=== PATIENT | female | born 1955 | race Hispanic/Latino ===

== ENCOUNTER 2016-03-17 11:47 | Emergency (ER) | payer MEDICARE ==
[2016-03-17 11:54] VITALS: BP 209/95
--- NOTE | 2016-03-17 14:06 | Emergency Department Report ---
ED Rash HPI - HPI Chief Complaint: Skin Rash Stated Complaint: SKIN IRRITATION Duration: 4 Days Location: Chest Suspected Cause: Other Rash Symptoms: Yes Itching, No Facial Swelling, No Tongue/Oral Swelling, No Breathing Difficulties, No Choking Sensation, No Wheezing/Dyspnea, No Peeling, No Blistering, No Fever, No Lightheaded, No Malaise, No Myalgias Severity: mild Other History: 61 y/o female complain of rash to abdomen and chest area x 4 days .pt state she was her clothes in dish person soap and notice rash after .pt denies any prior medical treatment .pt state she has not taking blood pressure medication this am ED Review of Systems ROS: Stated complaint: SKIN IRRITATION Other details as noted in HPI Constitutional: denies: chills, fever Eyes: denies: eye pain, eye discharge, vision change ENT: denies: ear pain, throat pain Respiratory: denies: cough, shortness of breath, wheezing Cardiovascular: denies: chest pain, palpitations Endocrine: no symptoms reported Gastrointestinal: denies: abdominal pain, nausea, diarrhea Genitourinary: denies: urgency, dysuria, discharge Musculoskeletal: denies: back pain, joint swelling, arthralgia Skin: rash. denies: lesions Neurological: denies: headache, weakness, paresthesias Psychiatric: denies: anxiety, depression Hematological/Lymphatic: denies: easy bleeding, easy bruising ED Past Medical Hx - Past Medical History Previous Medical History?: Yes Hx Hypertension: Yes (since 1993, takes azur) Additional medical history: irregular heartbeat, hard of hearing, uses sign language - Surgical History Past Surgical History?: Yes Additional Surgical History: casi eye surgery - Social History Smoking Status: Never Smoker Substance Use Type: Prescribed - Medications Home Medications: Home Medications Medication Instructions Recorded Confirmed Last Taken Type Amlodipine Bes/Olmesartan Med 1 tab PO DAILY 01/04/13 01/04/13 Unknown History [Mine 10-20 mg] Hydrocodone Bit/Acetaminophen 1 each PO Q8H PRN 01/04/13 01/04/13 Unknown History [Lortab 7.5-500 mg] Hydrocodone Bit/Acetaminophen 1 each PO Q8H PRN #40 tablet 01/05/13 Unknown Rx [Lortab 7.5-500 mg] Azithromycin [Zithromax Z-LOLA] 250 mg PO DAILY #6 tablet 11/20/13 Unknown Rx diphenhydrAMINE [Benadryl CAP] 50 mg PO Q8HR PRN #15 capsule 03/17/16 Unknown Rx predniSONE [Deltasone] 60 mg PO QDAY #3 tab 03/17/16 Unknown Rx Rash Exam - Exam General: Vital signs noted. No distress. Alert and acting appropriately. ED Course Vital Signs 03/17/16 11:48 Temperature 97.7 F Pulse Rate 68 Respiratory 18 Rate Blood Pressure 209/95 O2 Sat by Pulse 99 Oximetry ED Medical Decision Making - Medical Decision Making hypertension contact dermatitis pt aware of blood pressure state she will take medication and would like to be evaluate for rash Critical care attestation.: If time is entered above; I have spent that time in minutes in the direct care of this critically ill patient, excluding procedure time. ED Disposition Clinical Impression: Contact dermatitis Qualifiers: Contact dermatitis type: irritant Contact dermatitis trigger: detergents Qualified Code(s): L24.0 - Irritant contact dermatitis due to detergents Hypertension Qualifiers: Hypertension type: essential hypertension Qualified Code(s): I10 - Essential ( primary) hypertension Disposition: DISCHARGED TO HOME OR SELFCARE Is pt being admited?: No Does the pt Need Aspirin: No Condition: Stable Instructions: Contact Dermatitis (ED), Hypertension (ED) Additional Instructions: do not use soap to wash clothes Prescriptions: diphenhydrAMINE [Benadryl CAP] 50 mg PO Q8HR PRN #15 capsule PRN Reason: Itching predniSONE [Deltasone] 60 mg PO QDAY #3 tab Referrals: PRIMARY CARE, [Primary Care Provider] - 3-5 Days [facility] [Outside] - 3-5 Days Time of Disposition: 14:06
== END 2016-03-17 14:16 | disposition home or self-care (01) ==
LOC: ED 11:47
DX: L24.0 Irritant contact dermatitis due to detergents (principal); I10 Essential (primary) hypertension
CPT/HCPCS: 99282

== ENCOUNTER 2018-06-04 14:48 | Day surgery (SDC) | payer MEDICARE ==
[2018-06-04] MEDS ORDERED: VANCOMYCIN/NS 1 GM/250 ML 1 GM/250 ML BAG IV NR (15:11)
--- NOTE | 2018-06-04 15:55 | Anesthesia Day of Surgery ---
Anesthesia Day of Surgery - Day of Surgery Patient Examined: Yes Patient H&P Reviewed: Yes Patient is NPO: Yes
--- NOTE | 2018-06-04 15:55 | Anesthesia Consultation ---
Anesthesia Consult and Med Hx Date of service: 06/04/18 - Airway Anesthetic Teeth Evaluation: Dentures ROM Head & Neck: Adequate Mental/Hyoid Distance: Adequate Mallampati Class: Class II Intubation Access Assessment: Good - Pulmonary Exam CTA: Yes - Cardiac Exam Cardiac Exam: No Murmur - Pre-Operative Health Status ASA Pre-Surgery Classification: ASA2 Proposed Anesthetic Plan: General - Pulmonary Hx Smoking: No Hx Sleep Apnea: No (DEBORAH PRE SCREEN LOW RISK.) - Cardiovascular System Hx Hypertension: Yes (1993) - Other Systems Hx Cancer: No
[2018-06-04] MEDS ORDERED: LACTATED RINGERS 1,000 ML IV SCH (16:00)
[2018-06-04 16:59] VITALS: BP 182/91
[2018-06-04] MEDS ORDERED: DIPRIVAN 10 MG/ML IV ONE (18:13)
[2018-06-04] MEDS ORDERED: VERSED ONE (18:13)
[2018-06-04] MEDS ORDERED: SUBLIMAZE ONE (18:13)
[2018-06-04] MEDS ORDERED: MARCAINE 0.5% INFILTRATI ONE ×2 (18:35→18:59)
[2018-06-04] MEDS ORDERED: XYLOCAINE 1% 20 mL ONE (18:35)
[2018-06-04] MEDS ORDERED: XYLOCAINE 1% 20 mL INFILTRATI ONE (18:59)
--- NOTE | 2018-06-04 19:18 | Procedure Note ---
Date of procedure: 06/04/18 Pre-op diagnosis: trigger finger deformity right fourth finger Post-op diagnosis: same Procedure: Trigger finger release right fourth digit Procedure The patient was brought to the OR placed on the OR table supine following induction with a Mac anesthesia the patient's right upper extremity was prepped and draped in the usual sterile manner. A timeout procedure was done to identify the patient and the correct operative site. The arm was exsanguinated followed by inflation of the pneumatic tourniquet to 250 mmHg. A volar incision was made over the distal wrist crease in line with the fourth metacarpal using loupe magnification the incision was carried deep next the A1 eh was identified using sharp scissors the A1 eh was incised from distal to proximal care was taken to protect the neurovascular structures following this the wound was irrigated and was closed in a standard routine fashion. Dressings were applied the patient tolerated the procedure there were no complications she was sent to postanesthesia recovery in stable condition Anesthesia: MAC Surgeon: CHRIST HIRSCH State Trooper: CHEYANNE MCRAE Estimated blood loss: minimal Pathology: none Condition: stable Disposition: PACU
== END 2018-06-04 20:15 | disposition home or self-care (01) ==
LOC: OR 14:48
PROVIDERS: ATTEND Orthopaedic Surgery
DX: M65.341 Trigger finger, right ring finger (principal); E78.00 Pure hypercholesterolemia, unspecified; I10 Essential (primary) hypertension; Z79.899 Other long term (current) drug therapy; Z88.0 Allergy status to penicillin; Z98.890 Other specified postprocedural states; Z96.659 Presence of unspecified artificial knee joint
CPT/HCPCS: 26055; J2250; J2704; J3010; J3370; J7120

== ENCOUNTER 2018-10-21 08:20 | Outpatient (CLI) | payer MEDICARE ==
[2018-10-21 10:32] LABS: Hematocrit 43.4 % (30.3-42.9); Hemoglobin 14.9 gm/dl (10.1-14.3); Mean Corpuscular HGB Conc 34 % (30-34); Mean Corpuscular Volume 86 fl (79-97); Platelet Count 160 K/mm3 (140-440); Red Blood Count 5.05 M/mm3 (3.65-5.03); Red Cell Distribution Width 13.7 % (13.2-15.2)
[2018-10-21 10:57] LABS: Free T4 (Free Thyroxine) 1.2 ng/dL (0.76-1.46)
[2018-10-21 11:07] LABS: Alanine Aminotransferase 46 units/L (7-56); Albumin 4.4 g/dL (3.9-5); BUN/Creatinine Ratio 20; Blood Urea Nitrogen 12 mg/dL (7-17); Calcium 9.6 mg/dL (8.4-10.2); Chol/HDL Ratio 6.03 %; HDL Cholesterol 32 mg/dL (40-59); Hemolysis Index 7; LDL Cholesterol,Direct 152 mg/dL (50-130)
[2018-10-24 18:11] LABS: Vitamin D, 25-OH, D2 <4 ng/mL
== END 2018-10-21 08:21 | disposition home or self-care (01) ==
LOC: LAB 08:20
PROVIDERS: ATTEND Internal Medicine
DX: E05.90 Thyrotoxicosis, unspecified without thyrotoxic crisis or storm (principal); E55.9 Vitamin D deficiency, unspecified; E78.2 Mixed hyperlipidemia; R73.09 Other abnormal glucose; E78.00 Pure hypercholesterolemia, unspecified; I10 Essential (primary) hypertension
CPT/HCPCS: 36415; 80053; 80061; 82306; 82607; 83036; 84439; 84443; 85027

== ENCOUNTER 2018-11-11 08:41 | Outpatient (CLI) | payer MEDICARE ==
--- NOTE | 2018-11-11 11:02 | Ultrasound Report ---
ULTRASOUND THYROID INDICATION / CLINICAL INFORMATION: E05.90) Thyrotoxicosis, unspecified without thyrotoxic crisis or. COMPARISON: None available. FINDINGS: RIGHT LOBE: Size = 5.4 x 2.7 x 2.3 cm. - Echogenicity: Normal. - Vascularity: Normal. - Nodules < 1 cm: One 8 mm nodule near the superior pole - Nodules >= 1 cm or Suspicious Nodules: 2.3 cm nodule near mid pole. 1.3 cm nodule near the inferior pole. - NODULE # 1 -- Location: right mid -- Size: 2.3 x 1.8 x 1.6 cm -- Composition: Mixed cystic & solid = 1 point -- Echogenicity: Hypoechoic = 2 points -- Shape: Kacls-pcrw-[id number] = 0 points -- Margin: Smooth = 0 points -- Echogenic Foci: Punctate echogenic foci = 3 points -- Additional Findings: None. -- ACR TI-RADS Score = 5. -- ACR TI-RADS Category = TR-4. LEFT LOBE: Size = 5.5 x 1.8 x 1.9 cm. - Echogenicity: Normal. - Vascularity: Normal. - Nodules < 1 cm: None. - Nodules >= 1 cm or Suspicious Nodules: 4 - NODULE # 1 -- Location: left upper -- Size: 1.5 x 1.2 x 1.5 cm -- Composition: Mixed cystic & solid = 1 point -- Echogenicity: Hypoechoic = 2 points -- Shape: Kngne-smtd-kbcc = 0 points -- Margin: Smooth = 0 points -- Echogenic Foci: Punctate echogenic foci = 3 points -- Additional Findings: None. -- ACR TI-RADS Score = 5. -- ACR TI-RADS Category = TR-4 (4-6 points). ISTHMUS: No significant abnormality. Thickness = 0.6 cm. - Nodules < 1 cm: None. - Nodules >= 1 cm or Suspicious Nodules: None. LYMPH NODES: No abnormal lymph nodes. PARATHYROID GLANDS: No abnormal parathyroid gland. ADDITIONAL FINDINGS: None. IMPRESSION: Mildly enlarged thyroid gland with bilateral thyroid nodules as outlined above. Note: Nodule size based on mean (average) size of 3 dimensions. Note: Nodules < 1 cm do not typically require follow-up or FNA unless there are suspicious features ( TRISHA, 2015) ACR TI-RADS Thyroid Nodule Recommendations TI-RADS 1 (0 points) -- Benign. No FNA or follow-up. TI-RADS 2 (1-2 points) -- Not suspicious. No FNA or follow-up. TI-RADS 3 (3 points) -- Mildly suspicious. Follow up in 1 year if 1.5 cm. FNA if 2.5 cm. TI-RADS 4 (4-6 points) -- Moderately suspicious. Follow up in 1 year if 1.0 cm. FNA if 1.5 cm. TI-RADS 5 (7+ points) -- Highly suspicious. Follow up in 1 year if 0.5 cm. FNA if 1.0 cm. Signer Name: Lazaro Sanchez Jr, MD Signed: 11/11/2018 10:58 AM Workstation Name: [id number]
--- NOTE | 2018-11-11 13:58 | Mammography Report ---
BILATERAL DIGITAL SCREENING MAMMOGRAMS WITH CAD INDICATION: Screening. COMPARISONS: None available. However, she indicated that she had had a previous mammogram and [place]. FINDINGS: Craniocaudal and mediolateral oblique views of both breasts were obtained using 2-D digital acquisition. In addition to standard review, the examination was analyzed for possible abnormalities using a computer-assisted detection device (iCAD). The breast tissue is heterogeneously dense, which may obscure small masses. Bilateral asymmetries require comparison with the prior mammogram or additional imaging. IMPRESSION: Comparison with the previous mammogram is recommended. We will attempt to obtain a prior mammogram fo r comparison. If we do not obtain a prior mammogram within 30 days, a revised report will be issued r ecommending a recall for additional imaging. Please be advised that the patient should not schedule a n appointment for return until adequate time (at least 2 weeks) has passed breast to obtain the prior mammogram. BI-RADS CATEGORY 0: INCOMPLETE - NEED ADDITIONAL IMAGING EVALUATION AND/OR PRIOR MAMMOGRAMS FOR COMP ARISON Information is entered into a reminder system for a target due date for the next mammogram. The resul ts and recommendations were sent to the patient by mail. Signer Name: Murali Gan MD Signed: 11/11/2018 1:54 PM Workstation Name: [id number]
== END 2018-11-11 08:42 | disposition home or self-care (01) ==
LOC: MAMMO 08:41
PROVIDERS: ATTEND Internal Medicine
DX: Z12.31 Encounter for screening mammogram for malignant neoplasm of breast (principal); E05.90 Thyrotoxicosis, unspecified without thyrotoxic crisis or storm
CPT/HCPCS: 76536; 77067

== ENCOUNTER 2019-04-27 09:47 | Outpatient (CLI) | payer MEDICARE ==
--- NOTE | 2019-04-27 11:29 | XRay Report ---
CERVICAL SPINE HISTORY: Cervicalgia COMPARISON: None. TECHNIQUE: 5 views of the cervical spine obtained. Oblique views were obtained. FINDINGS: Vertebrae: Normal alignment. No fracture or significant abnormality. The odontoid and C1 are normal. Disc Spaces:Moderate multilevel degenerative disc disease with greater narrowing at C5-6 and C6-7. Facet Joints:Moderate multilevel facet joint arthropathy. Mild to moderate neural foraminal narrowing on the left at C3-4 and C4-5 and on the right at C4-5. Prevertebral Soft Tissues:No significant abno rmality. Additional findings: None. IMPRESSION: 1. Moderately severe multilevel degenerative disc disease and multilevel facet joint arthropathy. Signer Name: Murali Gan MD Signed: 04/27/2019 11:24 AM Workstation Name: [id number]
== END 2019-04-27 09:48 | disposition home or self-care (01) ==
LOC: XRAY 09:47
PROVIDERS: ATTEND Orthopaedic Surgery
DX: M47.812 Spondylosis without myelopathy or radiculopathy, cervical region (principal); M50.322 Other cervical disc degeneration at C5-C6 level; M50.323 Other cervical disc degeneration at C6-C7 level
CPT/HCPCS: 72050

== ENCOUNTER 2020-01-04 12:20 | Outpatient (CLI) | payer MEDICARE ==
--- NOTE | 2020-01-05 10:19 | Magnetic Resonance Report ---
MRI LEFT SHOULDER WITHOUT CONTRAST INDICATION / CLINICAL INFORMATION: Lt. shoulder pain. TECHNIQUE: Multiplanar, multisequence MR images were obtained. No contrast used. COMPARISON: None available. FINDINGS: SUPRASPINATUS: Tendinosis without tear. INFRASPINATUS: Tendinosis without tear. SUBSCAPULARIS: No significant abnormality. BICEPS TENDON, LONG HEAD: No significant abnormality. GLENOID LABRUM: Degenerative labral fraying without definite tear. ARTICULAR CARTILAGE: Moderately advanced glenohumeral joint chondrosis. JOINT SPACE AND CAPSULE: No significant abnormality. ACROMION and A.C. JOINT: Moderate acromioclavicular joint degenerative arthrosis with distal clavicul ar osteophytosis producing moderate subacromial encroachment. SUBACROMIAL/SUBDELTOID SPACE: No significant abnormality. BONES: No significant bone marrow edema. No fracture. No osseous lesion. SOFT TISSUES: No significant abnormality. ADDITIONAL FINDINGS: None. IMPRESSION: 1. Supraspinatus and infraspinatus tendinosis without tear. 2. Degenerative labral fraying. No definite tear is identified. 3. Moderate glenohumeral and acromioclavicular joint degenerative arthrosis. Report dictated by: Cam Song MD Report dictated on: 01/05/2020 8:47 AM I have reviewed the images, agree with this report, and edited this report as needed. Signer Name: Ann Marie Soto MD Signed: 01/05/2020 10:15 AM Workstation Name: [email or web address]
== END 2020-01-04 12:21 | disposition home or self-care (01) ==
LOC: MRI 12:20
PROVIDERS: ATTEND Orthopaedic Surgery
DX: M19.012 Primary osteoarthritis, left shoulder (principal); M75.42 Impingement syndrome of left shoulder; M25.512 Pain in left shoulder; M77.8 Other enthesopathies, not elsewhere classified

== ENCOUNTER 2020-09-20 10:17 | Outpatient (CLI) | payer MEDICARE ==
--- NOTE | 2020-09-20 14:54 | Mammography Report ---
DIGITAL SCREENING MAMMOGRAM WITH CAD, 09/20/2020 CLINICAL INFORMATION / INDICATION: Routine screening mammography. SCRN MAMMO TECHNIQUE: Digital bilateral 2D mammography was obtained in the craniocaudal and mediolateral obliqu e projections. This examination was interpreted with the benefit of Computer-Aided Detection analysis . COMPARISON: 06/07/2016 through 11/11/2018. FINDINGS: Breast Density: There are scattered areas of fibroglandular density. No dominant mass, suspicious calcifications, or architectural distortion in either breast. There are benign calcifications bilaterally. A right biopsy clip is again noted. Mild asymmetric lori st tissue on the left is stable. No new abnormality is seen. IMPRESSION: No mammographic evidence of malignancy. Follow up recommendation: Routine yearly BI-RADS Category 2: Benign. A "normal" or negative report should not discourage follow up or biopsy of a clinically significant f inding. A written summary of these findings will be mailed to the patient. The patient will be entered into a mammography reporting system which will generate a reminder letter for the patient's next appointmen t at the appropriate interval. The [employer] recommends yearly mammograms starting at age 40 and continuing as l sydnie as a woman is in good health. Breast MRI is recommended for women with an approximate 20-25% or greater lifetime risk of breast cancer, including women with a strong family history of breast or ova manuel cancer or who have been treated for Hodgkin's disease. Signer Name: Jalil Mata MD Signed: 09/20/2020 2:49 PM Workstation Name: [id number]
== END 2020-09-20 10:18 | disposition home or self-care (01) ==
LOC: MAMMO 10:17
PROVIDERS: ATTEND Internal Medicine
DX: Z12.31 Encounter for screening mammogram for malignant neoplasm of breast (principal); N64.89 Other specified disorders of breast
CPT/HCPCS: 77067

== ENCOUNTER 2021-07-10 13:02 | Outpatient (CLI) | payer MEDICARE ==
--- NOTE | 2021-07-10 15:50 | XRay Report ---
CERVICAL SPINE 5 VIEWS INDICATION / CLINICAL INFORMATION: Impingement syndrome of left shoulder; Cervicalgia. COMPARISON: 04/27/2019. FINDINGS: VERTEBRAE: No acute fracture. No significant malalignment. DISC SPACES / FACET JOINTS:Moderate multilevel degenerative changes, not significantly changed compar ed to reference exam from April 2019. PARASPINAL SOFT TISSUES:No significant abnormality. ADDITIONAL FINDINGS: None. Signer Name: Kirby Blank MD Signed: 07/10/2021 3:43 PM Workstation Name: [id number]
== END 2021-07-10 13:03 | disposition home or self-care (01) ==
LOC: XRAY 13:02
PROVIDERS: ATTEND Orthopaedic Surgery
DX: M54.2 Cervicalgia (principal); M75.42 Impingement syndrome of left shoulder
CPT/HCPCS: 72050

== ENCOUNTER 2021-09-27 09:37 | Outpatient (CLI) | payer MEDICARE ==
[2021-09-27 12:29] LABS: Alanine Aminotransferase 24 units/L (7-56); Albumin 4.5 g/dL (3.9-5); Blood Urea Nitrogen 17 mg/dL (7-17); Calcium 9.8 mg/dL (8.4-10.2); HDL Cholesterol 43 mg/dL (40-59); Hemolysis Index 13; LDL Cholesterol,Direct 141 mg/dL (50-130)
[2021-09-27 12:56] LABS: BUN/Creatinine Ratio 24
[2021-09-27 15:25] LABS: Hematocrit 46.1 % (30.3-42.9); Hemoglobin 15.6 gm/dl (10.1-14.3); Mean Corpuscular HGB Conc 34 % (30-34); Mean Corpuscular Volume 89 fl (79-97); Platelet Count 115 K/mm3 (140-440); Red Blood Count 5.16 M/mm3 (3.65-5.03); Red Cell Distribution Width 14.3 % (13.2-15.2)
[2021-09-27 19:08] LABS: Basophils % (Manual) 0 % (0.0-1.8); Total Cells Counted 100
[2021-09-27 19:09] LABS: Platelet Estimate Consistent w Auto; RBC Morphology Normal
== END 2021-09-27 09:38 | disposition home or self-care (01) ==
LOC: LABHHL 09:37
PROVIDERS: ATTEND Internal Medicine
DX: R73.03 Prediabetes (principal); E78.5 Hyperlipidemia, unspecified; E55.9 Vitamin D deficiency, unspecified; I10 Essential (primary) hypertension; Z00.00 Encounter for general adult medical examination without abnormal findings
CPT/HCPCS: 36415; 80053; 80061; 82306; 83036; 84443; 85007; 85025

== ENCOUNTER 2021-10-11 08:16 | Outpatient (CLI) | payer MEDICARE ==
--- NOTE | 2021-10-14 15:56 | Mammography Report ---
DIGITAL SCREENING MAMMOGRAM WITH CAD, 10/11/2021 CLINICAL INFORMATION / INDICATION: Routine screening mammography. TECHNIQUE: Digital bilateral 2D mammography was obtained in the craniocaudal and mediolateral obliqu e projections. This examination was interpreted with the benefit of Computer-Aided Detection analysis . COMPARISON: 09/20/2020, 11/11/2018 FINDINGS: Breast Density: There are scattered areas of fibroglandular density. No dominant mass, suspicious calcifications, or architectural distortion in either breast. Bilateral benign-appearing calcifications are unchanged. Asymmetric tissue in the upper inner left br east middle depth has not significant weight change. IMPRESSION: No mammographic evidence of malignancy. Follow up recommendation: Routine yearly screening mammogram. BI-RADS Category 2: BENIGN. A "normal" or negative report should not discourage follow up or biopsy of a clinically significant f inding. A written summary of these findings will be mailed to the patient. The patient will be entered into a mammography reporting system which will generate a reminder letter for the patient's next appointmen t at the appropriate interval. The [employer] recommends yearly mammograms starting at age 40 and continuing as l sydnie as a woman is in good health. Breast MRI is recommended for women with an approximate 20-25% or greater lifetime risk of breast cancer, including women with a strong family history of breast or ova manuel cancer or who have been treated for Hodgkin's disease. Signer Name: Armando Currie MD Signed: 10/14/2021 3:52 PM Workstation Name: [email or web address]
== END 2021-10-11 08:17 | disposition home or self-care (01) ==
LOC: MAMMO 08:16
PROVIDERS: ATTEND Internal Medicine
DX: Z12.31 Encounter for screening mammogram for malignant neoplasm of breast (principal); N64.89 Other specified disorders of breast
CPT/HCPCS: 77067